=== PATIENT | male | born 1970 | race American Indian/Alaskan Native ===

== ENCOUNTER 2016-07-12 14:01 | Outpatient (CLI) | payer OTHER ==
--- NOTE | 2016-07-12 14:55 | XRay Report ---
RIGHT ANKLE, 3 views: History: Swelling. Findings: Mild soft tissue swelling is identified. No acute osseous abnormality or joint pathology is identified. The fifth metatarsal base is intact. Impression: Soft tissue swelling. No acute osseous injury.
--- NOTE | 2016-07-12 14:55 | XRay Report ---
RIGHT FOOT, 3 views: History: Right foot pain. The bony architecture is intact. Bony alignment is normal. No soft tissue abnormalities are seen. The joint spaces appear preserved. IMPRESSION: Unremarkable right foot.
== END 2016-07-12 14:02 | disposition home or self-care (01) ==
LOC: XRAY 14:01
PROVIDERS: ATTEND Family Medicine Adult Medicine
DX: M79.671 Pain in right foot (principal); M25.571 Pain in right ankle and joints of right foot; M25.471 Effusion, right ankle